=== PATIENT | female | born 1995 | race Two or more races ===

== ENCOUNTER 2024-03-31 21:23 | Emergency (ER) | payer BC, OTHER ==
[~2024-03-31] VITALS: Ht 170.2 cm; Wt 82.8 kg
[2024-03-31] MEDS: DexAMETHasone SOD PHOS 10MG/1ML VIAL INJ IM ONE (21:52)
--- NOTE | 2024-03-31 22:23 | DVH ---
Procedure: XY CHEST TWO VIEWS ROUTINE 03/31/2024 09:54 PM Indication: Cough. Comparison: None TECHNIQUE: XY CHEST TWO VIEWS ROUTINE FINDINGS: Medical devices: None. Cardiomediastinal: The heart is normal in size. Pulmonary vasculature is within normal limits. Lungs: No focal pulmonary opacity is seen. The costophrenic angles are clear. No pneumothorax. Bones/soft tissues: No acute abnormality is noted. IMPRESSION: 1. No acute cardiopulmonary disease.
[2024-03-31] MEDS: IPRATROPIUM BROM 0.5 MG/2.5ML INH SOL NEB ONE (22:42)
[2024-03-31] MEDS: ALBUTEROL SULF 2.5 MG/0.5ML(0.5%) NEB SOLN NEB ONE (22:43)
[2024-03-31] MEDS ORDERED: BENZ100C97 PO (23:10)
[2024-03-31] MEDS ORDERED: DEXT60TA4 PO (23:10)
[2024-03-31] MEDS ORDERED: ALBU108A5 IN (23:10)
--- NOTE | 2024-03-31 23:10 | ED.PDOC ---
SOB-HPI HPI Comments Patient is a pleasant 28-year-old female who arrives to the ED with complaints of cough and chest congestion off and on for the past two weeks. Patient states he symptoms came on have been intermittent and moderate at times. Patient denies any history of pulmonary concerns or asthma. Patient denies any fever nausea or vomiting. Patient does confirm tobacco use. Vital signs were remarkable for mild hypertension on arrival. Chief Complaint: Cough Time Seen by MD: 21:28 Reviewed notes: Nurses Notes Information Source: Patient Mode of Arrival: Ambulatory Severity: Moderate Timing: Weeks Duration: Since onset, Intermittent Context: At Rest PE Risk Factors: None History of: None Prehospital treatment: None Modifying Factors: Nothing Associated Signs and Symptoms: Wheeze, Cough Quality: Burning If cough with SOB: Productive, Yellow Past Medical History PAST MEDICAL HISTORY: Denies Surgical History: Denies all surgeries ELEVATORS INSPECTOR History: No Pertinent ELEVATORS INSPECTOR History Family History Family History: Reviewed,noncontributory to illness, No family hx of Cancer, No family hx of DM, No family hx of Heart ramin, No family hx of HTN, No family hx ofKidney ramin, No family hx of Liver ramin, No family hx of Lung ramin, No family hx of Stroke Social History Smoker: Non-Smoker Alcohol: Denies ETOH Use Drugs: Denies Drug Use Lives In: Home Constitutional: denies: chills, diaphoresis, fatigue, fever, malaise, sweats, weakness, others EENTM: denies: blurred vision, double vision, ear bleeding, ear discharge, ear drainage, ear pain, ear ringing, eye pain, eye redness, hearing loss, mouth pain, mouth swelling, nasal discharge, nose bleeding, nose congestion, nose pain, photophobia, tearing, throat pain, throat swelling, voice changes, others Respiratory: reports: cough, shortness of breath, wheezing; denies: hemoptysis, orthopnea, SOB at rest, SOB with excertion, stridor, others Cardiovascular: denies: chest pain, dizzy spells, diaphoresis, Dyspnea on exertion, edema, irregular heart beat, left arm pain, lightheadedness, palpitations, PND, syncope, others Gastrointestinal: denies: abdomen distended, abdominal pain, blood streaked bowels, constipated, diarrhea, dysphagia, difficulty swallowing, hematemesis, melena, nausea, poor appetite, poor fluid intake, rectal bleeding, rectal pain, vomiting, others Genitourinary: denies: abnormal vagina bleeding, burning, dyspareunia, dysuria, flank pain, frequency, hematuria, incontinence, pain, , vagina discharge, urgency, others Neurological: denies: dizziness, fainting, headache, left sided numbness, left sided weakness, numbness, paresthesia, pre-existing deficit, right sided numbn ess, right sided weakness, seizure, speech problems, tingling, tremors, weakness, others Musculoskeletal: denies: back pain, gout, joint pain, joint swelling, muscle pain, muscle stiffness, neck pain, others Integumetry: denies: bruises, change in color, change in hair/nails, dryness, laceration, lesions, lumps, rash, wounds, others Allergic/Immunocompromised: denies: Difficulty Healing, Frequent Infections, Hives, Itching, others Hematologic/Lymphatic: denies: anemia, blood clots, easy bleeding, easy bruising, swollen glands, others Endocrine: denies: excessive hunger, excessive sweating, excessive thirst, excessive urination, flushing, intolerance to cold, intolerance to heat, unexplained weight gain, unexplained weight loss, others Psychiatric: denies: anxiety, bipolar disorder, depression, hopeless, panic disorder, schizophrenia, sleepless, suicidal, others Physical Exam General Appearance: Moderate Distress (Patient appears to be in [id number] distress due to coughing chest congestion concerns.), Normal HEENT: Normal ENT Inspection, Pharynx Normal, TMs Normal Neck: Full Range of Motion, Non-Tender, Normal, Normal Inspection Respiratory: Other (Mild right middle lobe wheeze appreciated on auscultation. No accessory muscle use. No signs of respiratory distress.) Cardiovascular: No Edema, No JVD, No Murmur, No Gallop, Normal Peripheral Pulses, Regular Rate/Rhythm Breast Exam: Deferred Gastrointestinal: No Organomegaly, Non Tender, No Pulsatile Mass, Normal Bowel Sounds, Soft Genitalia: Deferred Pelvic: Deferred Rectal: Deferred Extremities: No calf tenderness, Normal capillary refill, Normal inspection, Normal range of motion, Non-tender, No pedal edema Neurologic: Alert, senior program planner II-XII nml as Tested, No Motor Deficits, Normal Affect, Normal Mood, No Sensory Deficits Cerebellar Function: Normal Reflexes: Normal Skin: Dry, Normal Color, Warm Lymphatic: No Adenopathy Was a procedure done? Was a procedure done?: No Differential Dx Differential Diagnosis: Asthma, Bronchitis, Pneumonia, URI X-Ray, Labs, Meds, VS Vital Signs Date Time Temp Pulse Resp B/P (MAP) Pulse Ox O2 Delivery O2 Flow Rate FiO2 03/31/24 22:43 16 97 Room Air* 0 21 03/31/24 22:43 97 Room Air* 0 21 03/31/24 21:56 69 18 98 Room Air 03/31/24 21:27 98.0 69 18 150/83 (105) 98 03/31/24 21:27 18 98 Room Air* 0 21 Current Medications Medications (Trade) Dose Ordered Sig/Genia Route Start Time Stop Time Status Last Admin Albuterol (Ventolin Medneb) 2.5 mg ONCE ONCE NEB 03/31/24 21:45 03/31/24 21:47 DC 03/31/24 22:43 Ipratropium [place] (Atrovent Medneb) 0.5 mg ONCE ONCE NEB 03/31/24 21:45 03/31/24 21:47 DC 03/31/24 22:42 Dexamethasone Sodium Phosphate (Decadron Injection) 10 mg ONCE ONCE IM 03/31/24 21:45 03/31/24 21:47 DC 03/31/24 21:52 X-Ray, Labs, Meds, VS Comment All studies performed the ED were evaluated by me personally. X-rays studies were unremarkable for any consolidation or fibrotic lung concerns. Unremarkable chest x-ray. Patient appears to be suffering from a viral upper respiratory illness. Patient had good response to medication dispensed. Advised patient utilize her rescue inhaler as needed as well as good rest, good hydration and healthy nutrition throughout illness event. Time of 1ST Reevaluation: 23:08 Reevaluation 1ST: Improved Consultation: PCP Patient Education/Counseling: Diagnosis, Treatment Family Education/Counseling: Diagnosis, Treatment Departure 1 Departure Time of Disposition: 23:09 Impression: Primary Impression: Viral upper respiratory illness Disposition: 01 HOME / SELF CARE / HOMELESS Condition: Stable Additional Instructions: Advised patient utilize medication as needed for symptomatic relief as well as good hydration and healthy nutrition throughout illness event. e-Prescriptions Albuterol Sulfate (Albuterol Sulfate Hfa) 108 Mcg/Act Aer 108 MCG IN Q4HP PRN, #1 AER Prov: VERNON JIN PAC 03/31/24 Benzonatate (Benzonatate) 100 Mg Cap 1 CAP PO TID, #20 CAP Prov: VERNON JIN PAC 03/31/24 Dextromethorphan-Guaifenesin (Mucinex Dm Maximum Streng) 1 Tab Tab 1 TAB PO BID, #20 TAB Prov: VERNON JIN PAC 03/31/24 Discharged With: Self, Friend Critical Care Note Critical Care Time?: No Stability Stability form required: No Heart Score Heart Score: Heart Score Response (Comments) Value History N/A 0 EKG N/A 0 Age N/A 0 Risk Factors N/A 0 Troponin N/A 0 Total 0 VERNON JIN PAC Mar 31, 2024 23:10
[2024-03-31 23:21] VITALS: BP 119/51; PULSE 56; RESP 18; TEMP 98.1; O2SAT 98
== END 2024-03-31 23:21 | disposition home or self-care (01) ==
LOC: ER 21:23
DX: J06.9 Acute upper respiratory infection, unspecified (principal); B97.89 Other viral agents as the cause of diseases classified elsewhere
CPT/HCPCS: 71046; 94640; 96372; 99283; J1100

== ENCOUNTER 2024-04-05 16:48 | Emergency (ER) | payer BC ==
[~2024-04-05] VITALS: Ht 170.2 cm; Wt 81.9 kg
[~2024-04-05 16:48] MED LIST: ALBU108A5 IN; BENZ100C97 PO; DEXT60TA4 PO
[2024-04-05] MEDS: IPRATROPIUM BROM 0.5 MG/2.5ML INH SOL NEB ONE (17:32)
[2024-04-05] MEDS: ALBUTEROL SULF 2.5 MG/0.5ML(0.5%) NEB SOLN NEB ONE (17:32)
[2024-04-05 20:16] VITALS: BP 133/79; PULSE 111; RESP 18; TEMP 98.8; O2SAT 97
[2024-04-05] MEDS: methylPREDNISolone SOD SUCC 125 MG/2 ML VL IM ONE (20:23)
[2024-04-05] MEDS ORDERED: PRED20TA2 PO (20:40)
--- NOTE | 2024-04-05 20:40 | ED.PDOC ---
SOB-HPI HPI Comments PATIENT COMPLAINING OF SHORTNESS A BREATH, CONGESTION. PATIENT STATES SHE WAS SEEN FOUR DAYS AGO HE WAS GIVEN BREATHING TREATMENTS SENT HOME WITH COUGH MEDICATIONS. STATES SHE FEELS NO SIGNIFICANT IMPROVEMENT. NO FEVER NO CHILLS. NOTHING MAKES IT BETTER, NOTHING MAKES IT WORSE. Chief Complaint: Shortness of Breath Time Seen by MD: 17:04 Reviewed notes: Nurses Notes Information Source: Patient Mode of Arrival: Ambulatory Past Medical History PAST MEDICAL HISTORY: Denies Surgical History: Denies all surgeries SALES SUPPORT COORDINATOR History: No Pertinent SALES SUPPORT COORDINATOR History Family History Family History: Reviewed,noncontributory to illness, No family hx of Cancer, No family hx of DM, No family hx of Heart ramin, No family hx of HTN, No family hx ofKidney ramin, No family hx of Liver ramin, No family hx of Lung ramin, No family hx of Stroke Social History Smoker: Non-Smoker Alcohol: Denies ETOH Use Drugs: Denies Drug Use Lives In: Home Constitutional: denies: chills, diaphoresis, fatigue, fever, malaise, sweats, weakness, others EENTM: denies: blurred vision, double vision, ear bleeding, ear discharge, ear drainage, ear pain, ear ringing, eye pain, eye redness, hearing loss, mouth pain, mouth swelling, nasal discharge, nose bleeding, nose congestion, nose pa in, photophobia, tearing, throat pain, throat swelling, voice changes, others Respiratory: reports: SOB at rest, wheezing; denies: cough, hemoptysis, orthopnea, shortness of breath, SOB with excertion, stridor, others Cardiovascular: denies: chest pain, dizzy spells, diaphoresis, Dyspnea on exertion, edema, irregular heart beat, left arm pain, lightheadedness, palpitations, PND, syncope, others Gastrointestinal: denies: abdomen distended, abdominal pain, blood streaked bowels, constipated, diarrhea, dysphagia, difficulty swallowing, hematemesis, melena, nausea, poor appetite, poor fluid intake, rectal bleeding, rectal pain, vomiting, others Genitourinary: denies: abnormal vagina bleeding, burning, dyspareunia, dysuria, flank pain, frequency, hematuria, incontinence, pain, , vagina discharge, urgency, others Neurological: denies: dizziness, fainting, headache, left sided numbness, left sided weakness, numbness, paresthesia, pre-existing deficit, right sided numbness, right sided weakness, seizure, speech problems, tingling, tremors, weakness, others Musculoskeletal: denies: back pain, gout, joint pain, joint swelling, muscle pain, muscle stiffness, neck pain, others Integumetry: denies: bruises, change in color, change in hair/nails, dryness, laceration, lesions, lumps, rash, wounds, others Physical Exam General Appearance: No Apparent Distress, Normal HEENT: Normal ENT Inspection, Pharynx Normal, TMs Normal Neck: Full Range of Motion, Non-Tender, Normal, Normal Inspection Respiratory: Chest Non-Tender, Lungs Clear, No Accessory Muscle Use, No Respiratory Distress, Normal Breath Sounds Cardiovascular: No Edema, No JVD, No Murmur, No Gallop, Normal Peripheral Pulses, Regular Rate/Rhythm Breast Exam: Deferred Gastrointestinal: No Organomegaly, Non Tender, No Pulsatile Mass, Normal Bowel Sounds, Soft Genitalia: Deferred Pelvic: Deferred Rectal: Deferred Extremities: No calf tenderness, Normal capillary refill, Normal inspection, Normal range of motion, Non-tender, No pedal edema Musculoskeletal : Apperance: Normal Neurologic: Alert, prop setter II-XII nml as Tested, No Motor Deficits, Normal Affect, Normal Mood, No Sensory Deficits Cerebellar Function: Normal Reflexes: Normal Skin: Dry, Normal Color, Warm Lymphatic: No Adenopathy Was a procedure done? Was a procedure done?: No Differential Dx Differential Diagnosis: Anxiety, Asthma, Bronchitis, Pneumonia X-Ray, Labs, Meds, VS Vital Signs Date Time Temp Pulse Resp B/P (MAP) Pulse Ox O2 Delivery O2 Flow Rate FiO2 04/05/24 20:16 98.8 111 18 133/79 (97) 97 98.8 04/05/24 17:33 99 Room Air* 0 21 04/05/24 17:00 97.9 115 26 145/89 (107) 97 Current Medications Medications (Trade) Dose Ordered Sig/Genia Route Start Time Stop Time Status Last Admin Albuterol (Ventolin Medneb) 2.5 mg ONCE ONCE NEB 04/05/24 17:15 04/05/24 17:16 DC 04/05/24 17:32 Ipratropium [place] (Atrovent Medneb) 0.5 mg ONCE ONCE NEB 04/05/24 17:15 11/20/24 17:16 DC 04/05/24 17:32 Methylprednisolone Sodium Succinate (Solu Medrol) 125 mg ONCE ONCE IM 04/05/24 17:15 04/05/24 17:16 DC 04/05/24 20:23 X-Ray, Labs, Meds, VS Comment IMAGING: X-RAYS AND CT SCANS WERE REVIEWED AND INTERPRETED BY THIS PROVIDER, IMAGING SHOWS NO FRACTURES AND NO PATHOLOGICAL DISEASE. PENDING RADIOLOGY REVIEW. LABORATORY: LABS REVIEWED AND INTERPRETED BY THIS PROVIDER. NO SIGNIFICANT ABNORMALITIES NOTED. PATIENT HAS PRIOR MEDICAL VISITS REVIEWED. MED RECONCILIATION PERFORMED VITAL SIGNS REVIEWED Time of 1ST Reevaluation: 20:40 Reevaluation 1ST: Improved Patient Education/Counseling: Diagnosis, Treatment, Need For Follow Up (PATIENT ADVISED TO FOLLOW-UP IN THE EMERGENCY ROOM IN THE NEXT 24 TO 48 HOURS IF SYMPTOMS DO NOT IMPROVE. ADVISED FOLLOW-UP WITH PCP IN THE NEXT 3 TO 5 DAYS. PATIENT VERBALIZED UNDERSTANDING. 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
== END 2024-04-05 20:53 | disposition home or self-care (01) ==
LOC: ER 16:48
DX: J21.9 Acute bronchiolitis, unspecified (principal)
CPT/HCPCS: 94640; 96372; 99283; J2919